=== PATIENT | male | born 1995 | race Caucasian/White ===

== ENCOUNTER 2019-12-02 19:49 | Emergency (ER) | payer MEDICAID ==
[~2019-12-02] VITALS: Ht 172.7 cm; Wt 105.7 kg
[2019-12-02 19:56] VITALS: Ht 172.7 cm; Wt 105.7 kg
[2019-12-02 20:40] LABS: BASOPHIL % 0.5 % (0-2); PLATELET COUNT 343 x10^3mcL (130-400); RED CELL DISTRIBUTION WIDTH 13.5 % (11.5-14.5)
[2019-12-02 21:30] LABS: CALCIUM 8.9 mg/dL (8.5-10.1); CARBON DIOXIDE 31.1 mmol/L (21-32); CHLORIDE SERUM 100 mmol/L (98-107); CREATININE SERUM 1.2 mg/dL (0.7-1.3); GFR1 > 60 mL/min; GLUCOSE SERUM 88 mg/dL (74-106); POTASSIUM SERUM 4.2 mmol/L (3.5-5.1); SODIUM SERUM 137 mmol/L (136-145)
[2019-12-02 21:34] LABS: ALKALINE PHOSPHATASE 79 U/L (46-116); ALT/SGPT 59 U/L (16-63); AMYLASE 54 U/L (25-115); AST/SGOT 29 U/L (15-37); BILIRUBIN TOTAL 0.5 mg/dL (0.20-1.00); LIPASE 92 IU/L (73-393)
[2019-12-02 22:31] VITALS: BP 126/72
== END 2019-12-02 22:15 | disposition home or self-care (01) ==
LOC: ED 19:49
PROVIDERS: Emergency Medicine
DX: K21.9 Gastro-esophageal reflux disease without esophagitis (principal)
CPT/HCPCS: Q0092

== ENCOUNTER 2020-05-12 08:43 | Emergency (ER) | payer OTHER, SELFPAY ==
[~2020-05-12] VITALS: Ht 170.2 cm; Wt 95.3 kg
[2020-05-12 08:47] VITALS: BP 126/86; Ht 170.2 cm; Wt 95.3 kg
== END 2020-05-12 11:12 | disposition home or self-care (01) ==
LOC: ED 08:43
DX: U07.1 COVID-19 (principal)

== ENCOUNTER 2020-05-13 18:10 | Emergency (ER) | payer OTHER ==
[~2020-05-13] VITALS: Ht 175.3 cm; Wt 95.3 kg
[2020-05-13 18:12] VITALS: Ht 175.3 cm; Wt 95.3 kg
[2020-05-13 20:25] VITALS: BP 154/96
== END 2020-05-13 20:25 | disposition home or self-care (01) ==
LOC: ED 18:10
DX: R06.02 Shortness of breath (principal); U07.1 COVID-19; J12.89 Other viral pneumonia